=== PATIENT | female | born 1930 | race Caucasian/White ===

== ENCOUNTER 2019-05-13 11:03 | Inpatient (IN) | payer MEDICARE, OTHER ==
[2019-05-13] MEDS ORDERED: Nitroglycerin 2% Ointment 1 INCH/1 GM Packet ONE (11:18)
[2019-05-13] MEDS ORDERED: Aspirin Chewable 81 MG TAB ONE (11:18)
[2019-05-13 15:15] VITALS: BMI 35.2
[2019-05-13] MEDS ORDERED: Acetaminophen 325 MG TAB PO PRN (16:03)
[2019-05-13] MEDS ORDERED: Acetaminophen 650 MG Suppository PR PRN (16:03)
--- NOTE | 2019-05-13 16:53 | HP ---
TIME OF ASSESSMENT: 1500 hours. PRIMARY CARE PHYSICIAN: Dr. Steven Escalante. CHIEF COMPLAINT: Shortness of breath. HISTORY OF PRESENT ILLNESS: Ms. Campbell is a pleasant 89-year-old woman who presented to the emergency department in [place] with complaints of shortness of breath that got significantly worse yesterday evening. The patient reported associated chest tightness/heaviness. The patient states she has felt short of breath for the last several months and has actually been following with Dr. Reed regularly, who recommended a valve replacement. She is concerned that this is the cause of her difficulty breathing and is very adamant about being seen by him. The patient states she has otherwise felt generally well in recent days despite other gradually worsening shortness of breath. She denies having any fevers, chills, or sweats. Denies any cough or hemoptysis. In the emergency department at [place], she was given 20 mg of Lasix and states since then she has had some improvement in her breathing. She denies any underlying lung disease, history of COPD, or asthma. She does not wear any O2 at home. She is known to have a history of atrial fibrillation and is currently on Eliquis. REVIEW OF SYSTEMS: The patient reports having a good appetite. Denies any nausea or vomiting. No abdominal pain. No changes with her bowels or urinary symptoms. No headaches or dizziness. All other review of systems apart from those mentioned above in HPI are negative. ALLERGIES: NO KNOWN DRUG ALLERGIES. CURRENT MEDICATIONS: 1. Eliquis. 2. Amlodipine. 3. Pravastatin. 4. Triamterene/hydrochlorothiazide. PAST MEDICAL HISTORY: 1. Atrial fibrillation, on anticoagulation. 2. Hypertension. 3. Valve disorder. 4. Osteoarthritis. PAST SURGICAL HISTORY: Rectocele repair and perineoplasty in November 2016. SOCIAL HISTORY: The patient lives alone and is fully independent. Denies any tobacco use, alcohol consumption, or illicit drug use. PHYSICAL EXAMINATION: GENERAL: The patient appears well developed, well nourished, in no acute distress. She is resting comfortably in bed. VITAL SIGNS: Temperature 97.4, pulse 80, respirations 20, O2 saturation 97% on 2 L by nasal cannula, blood pressure 146/69. HEENT: Normocephalic and atraumatic. Pupils are equal, round, and reactive to light. Sclerae without icterus. Oropharynx is clear. NECK: Supple without lymphadenopathy. LUNGS: Notable for fine crackles at the right lung base. Otherwise clear. CARDIAC: Regular rate and rhythm. ABDOMEN: Soft, obese, nontender, nondistended. No guarding or rigidity. Normoactive bowel sounds present. No renal angle tenderness. EXTREMITIES: Trace lower extremity edema bilaterally. Peripheral pulses present. NEUROLOGIC: Alert and oriented x3. No neuro deficits. SKIN: Warm and dry. LABORATORY DATA: White count 9.8, hemoglobin 13, hematocrit 41.3, platelets 224, neutrophils 69.2%. Sodium 141, potassium 3.5, BUN 16, creatinine 0.82, GFR 66, glucose 111, calcium 9.2, total bilirubin 1.4, AST 17, ALT 16, alkaline phosphatase 89. Troponin negative. BNP 284.6. Total protein 7.8 and albumin 4.4. IMAGING DATA: Chest x-ray done at [facility] showed an enlarged heart with pulmonary vascular congestion and accompanying small effusions. There were atelectatic changes versus infiltrates in the lung bases. No pneumothoraces seen. IMPRESSION AND PLAN: Ms. Campbell is a very pleasant 89-year-old woman, who has been referred for management of the following. 1. Congestive heart failure exacerbation. The patient with an elevated BNP of 284.6. She was given 20 mg of Lasix at [facility] and has had symptomatic improvement. We will continue with Lasix 20 mg p.o. b.i.d. The patient concerned her shortness of breath is associated with the need for valve replacement. Cardiology consult has been placed as per patient's request. Echo also ordered; however, if an echo had been done within the last year, this will not have to be repeated unless instructed otherwise by Dr. Reed. Order was placed to obtain most recent cardiology records including echo. She had a negative troponin. We will continue to trend troponins. The patient given aspirin and Nitro-Bid in the emergency department due to reported "heaviness." EKG done in the ER showed atrial fibrillation with controlled ventricular response at a rate of 93. The patient is on Eliquis, which we will continue. We will continue the following. Consider CT imaging to better assess the possibility of infiltrates versus atelectatic changes. At present, no signs or symptoms of infection. Therefore, clinical suspicion for underlying pneumonia is low. 2. Hypertension. Monitor blood pressure and resume home medications. 3. Hyperlipidemia. Resume home medications once verified. 4. Gastrointestinal prophylaxis with famotidine. 5. Deep venous thrombosis prophylaxis. The patient is on anticoagulation. Mechanical sequential compression devices. PT/OT consult. 6. Code status full. Surrogate decision maker is her son, Shamir King. The patient's case was discussed with attending who agrees upon care as described above. Job ID: [id number]
[2019-05-13 18:06] LABS: Troponin I 0.022 ng/mL (< 0.028)
[2019-05-13] MEDS: Apixaban 5 MG TAB PO SCH (20:46)
[2019-05-13] MEDS: Famotidine 20 MG TAB PO SCH (20:46)
[2019-05-13] MEDS: Atorvastatin Calcium 10 MG TAB PO SCH (20:46)
[2019-05-13] MEDS ORDERED: Famotidine/PF 20 mg/2ml Vial SLOW IVP SCH (21:00)
[2019-05-14 05:13] LABS: #Basophils 0.1 thou/uL (0.0-0.2); #Eosinphils 0.2 thou/uL (0.0-0.7); #Lymphocytes 2.4 thou/uL (1.20-3.40); #Monocytes 0.7 thou/uL (0.11-0.59); #Neutrophils 5.7 thou/uL (1.40-6.50); %Basophils 0.6 % (0.0-1.0); %Eosinophils 2.6 % (0.0-10.0); %Lymphocytes 26.3 % (21.0-51.0); %Monocytes 7.6 % (0.0-10.0); %Neutrophils 62.9 % (42.0-75.0); Hemoglobin 12.3 g/dL (12.0-16.0); Mean Corpuscular Hemoglobin 29.3 pg (27.0-31.0); Mean Corpuscular Volume 88.9 fL (78.0-98.0); Mean Platelet Volume 8.7 fL (7.4-10.4); Platelet Count 215 thou/uL (130-400); RBC Distribution Width 14.2 % (11.5-14.5)
[2019-05-14 05:36] LABS: ALT (SGPT) 14 U/L (8-55); AST (SGOT) 21 U/L (5-34); Albumin 3.8 g/dL (3.4-4.8); Alkaline Phosphatase 87 U/L (40-110); Anion Gap 13 mmol/L (10-20); BUN (Urea Nitrogen) 18 mg/dL (9.8-20.1); Bilirubin, Total 1.1 mg/dL (0.2-1.2); Calc. Creatinine Clearance 57 mL/min (70-130); Calcium 8.5 mg/dL (7.8-10.44); Carbon Dioxide 27 mmol/L (23-31); Chloride 104 mmol/L (98-107); Estimated GFR-MDRD 57; Globulin 3.1 g/dL (2.4-3.5); Glucose 105 mg/dL (83-110); Potassium 3.5 mmol/L (3.5-5.1); Protein, Total 6.9 g/dL (6.0-8.3); Sodium 140 mmol/L (136-145)
[2019-05-14] MEDS: Cholecalciferol (Vitamin D3) 400 UNITS TAB PO SCH (08:56)
[2019-05-14] MEDS: Furosemide 20 MG TAB PO SCH ×2 (08:57→13:50)
[2019-05-14] MEDS: Amlodipine 10 MG TAB PO SCH (08:57)
[2019-05-14] MEDS: Famotidine 20 MG TAB PO SCH ×2 (08:57→21:28)
[2019-05-14] MEDS: Apixaban 5 MG TAB PO SCH (08:57)
[2019-05-14] MEDS: Icosapent Ethyl 1 GM CAPSULE PO SCH ×2 (08:58→18:09)
--- NOTE | 2019-05-14 10:48 | PDOC.HOSPP ---
- Subjective Encounter Date: 05/14/19 Encounter Time: 10:46 Subjective: 2 pillow orthopnea, marked VIRGEN - Objective Vital Signs & Weight: Vital Signs (12 hours) Temp Pulse Resp BP Pulse Ox 05/14/19 07:46 97.8 F 82 16 115/65 93 L 05/14/19 03:59 97.4 F L 79 18 158/67 H 95 Weight Weight 191 lb 12.8 oz I&O: 05/13/19 05/14/19 05/15/19 06:59 06:59 06:59 Intake Total 420 Output Total 1250 Balance -830 Result Diagrams: 05/14/19 04:19 05/14/19 04:19 Radiology Reviewed by me: Yes (cxr-chf) EKG Reviewed by me: Yes (atrial fib, no acute ST-T abnormality) Hospitalist ROS - Medication Medications: Active Medications Generic Name Dose Route Start Last Admin Trade Name Freq PRN Reason Stop Dose Admin Amlodipine Besylate 10 mg 05/14/19 09:00 05/14/19 08:57 Norvasc PO 10 mg DAILY BENITA Administration Atorvastatin Calcium 10 mg 05/13/19 21:00 05/13/19 20:46 Lipitor PO 10 mg HS BENITA Administration Cholecalciferol 600 units 05/14/19 09:00 05/14/19 08:56 Vitamin D PO 600 units DAILY BENITA Administration Famotidine 20 mg 05/13/19 21:00 05/14/19 08:57 Pepcid PO 20 mg Q12HR BENITA Administration Furosemide 20 mg 05/14/19 09:00 05/14/19 08:57 Lasix PO 20 mg 0900,1400 BENITA Administration Miscellaneous Medication 1 gm 05/14/19 08:00 05/14/19 08:58 Vascepa PO Not Given BID-WM BENITA Sodium Chloride 10 ml 05/13/19 16:03 05/13/19 20:50 Flush - Normal Saline IVF 10 ml Q12HR PRN Administration Saline Flush - Exam General Appearance: awake alert Neck: no JVD Heart: irregular, III/IV Heart - other findings: murmur crescendo/decrescendo Respiratory - other findings: rales lower 1/3 post chest Gastrointestinal: soft, normal bowel sounds Extremities: no edema Hosp A/P (1) Acute respiratory failure with hypoxia Code(s): J96.01 - ACUTE RESPIRATORY FAILURE WITH HYPOXIA Status: Acute (2) Aortic stenosis, severe Code(s): I35.0 - NONRHEUMATIC AORTIC (VALVE) STENOSIS Status: Acute (3) Acute CHF (congestive heart failure) Code(s): I50.9 - HEART FAILURE, UNSPECIFIED Status: Acute Qualifiers: Heart failure type: unspecified Qualified Code(s): I50.9 - Heart failure, unspecified (4) Atrial fibrillation with controlled ventricular response Code(s): I48.91 - UNSPECIFIED ATRIAL FIBRILLATION Status: Chronic (5) Anticoagulant long-term use Code(s): 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
[2019-05-14] MEDS ORDERED: Furosemide 40 MG/4 ML VIAL SLOW IVP SCH (16:30)
[2019-05-14] MEDS: Enoxaparin Sodium 80 MG/0.8 ML SYRINGE SC SCH (21:28)
[2019-05-14] MEDS: Atorvastatin Calcium 10 MG TAB PO SCH (21:28)
--- NOTE | 2019-05-14 23:46 | CON ---
DATE OF CONSULTATION: HISTORY OF PRESENT ILLNESS: The patient is an unfortunate 89-year-old woman, who presents with increasing dyspnea. The patient has a long history of atrial fibrillation. She also has a history of aortic stenosis. The patient was in her usual state of health when she developed increasing dyspnea. The patient denied having any chest discomfort. PAST MEDICAL HISTORY: 1. Atrial fibrillation. 2. Cerebrovascular accident. 3. Hypertension. 4. Dyslipidemia. 5. History of mild coronary artery disease. 6. Renal insufficiency. PAST SURGICAL HISTORY: Neck surgery, and carotid endarterectomy, hysterectomy. SOCIAL HISTORY: Nonsmoker. FAMILY HISTORY: Positive family history of heart disease. ALLERGIES: NO KNOWN DRUG ALLERGIES. PHYSICAL EXAMINATION: GENERAL: This is an obese woman, in no acute distress. VITAL SIGNS: Blood pressure 144/62. NECK: Showed no jugular venous distention. LUNGS: Have a few crackles in both bases. HEART: Irregular rate and rhythm. Normal S1, S2 with a 3/6 systolic murmur. ABDOMEN: Distended. EXTREMITIES: Showed trace edema. LABORATORY DATA: Sodium 140, potassium 3.5, chloride 104, bicarbonate 27, BUN 18, creatinine 0.92, glucose 105. White blood count 9.0, hemoglobin 12.3, hematocrit 37.3, and platelets 215. Her EKG revealed her to have atrial fibrillation with poor R-wave progression and premature ventricular contractions. IMPRESSION: 1. Congestive heart failure. 2. Severe aortic stenosis. 3. Permanent atrial fibrillation. 4. Hypertension. 5. History of cerebrovascular accident. 6. History of mild coronary artery disease. This patient presents with congestive heart failure. She has severe aortic stenosis. I would recommend the patient should be diuresed with Lasix. We will need to undergo a cardiac catheterization to evaluate if she has significant coronary artery disease. She will then be considered for a TAVR procedure. Job ID: [id number] MTDD
[2019-05-15] MEDS ORDERED: Furosemide 20 MG/2 ML VIAL SLOW IVP SCH (06:00)
[2019-05-15] MEDS: Icosapent Ethyl 1 GM CAPSULE PO SCH ×2 (08:04→17:55)
[2019-05-15] MEDS: Cholecalciferol (Vitamin D3) 400 UNITS TAB PO SCH (08:06)
[2019-05-15] MEDS: Enoxaparin Sodium 80 MG/0.8 ML SYRINGE SC SCH ×2 (08:06→20:59)
[2019-05-15] MEDS: Famotidine 20 MG TAB PO SCH ×2 (08:06→20:58)
[2019-05-15] MEDS: Amlodipine 10 MG TAB PO SCH (08:08)
--- NOTE | 2019-05-15 08:12 | PDOC.HOSPP ---
- Subjective Encounter Date: 05/15/19 Encounter Time: 08:11 Subjective: sob improved - Objective Vital Signs & Weight: Vital Signs (12 hours) Temp Pulse Resp BP BP Pulse Ox 05/15/19 08:08 82 141/64 H 05/15/19 04:00 97.7 F 86 18 136/60 96 Weight Weight 177 lb 14.4 oz I&O: 05/14/19 05/15/19 05/16/19 06:59 06:59 06:59 Intake Total 420 1062 Output Total 1250 2950 200 Balance -830 -1888 -200 Result Diagrams: 05/14/19 04:19 05/14/19 04:19 Hospitalist ROS - Medication Medications: Active Medications Generic Name Dose Route Start Last Admin Trade Name Freq PRN Reason Stop Dose Admin Amlodipine Besylate 10 mg 05/14/19 09:00 05/15/19 08:08 Norvasc PO 10 mg DAILY BENITA Administration Atorvastatin Calcium 10 mg 05/13/19 21:00 05/14/19 21:28 Lipitor PO 10 mg HS BENITA Administration Cholecalciferol 600 units 05/14/19 09:00 05/15/19 08:06 Vitamin D PO 600 units DAILY BENITA Administration Enoxaparin Sodium 80 mg 05/14/19 21:00 05/15/19 08:06 Lovenox SC 80 mg 0900,2100 BENITA Administration Famotidine 20 mg 05/13/19 21:00 05/15/19 08:06 Pepcid PO 20 mg Q12HR BENITA Administration Furosemide 20 mg 05/15/19 06:00 05/15/19 06:36 Lasix SLOW IVP 20 mg 0600,1400 BENITA Administration Miscellaneous Medication 1 gm 05/14/19 08:00 05/15/19 08:04 Vascepa PO Not Given BID-WM BENITA Sodium Chloride 10 ml 05/13/19 16:03 05/14/19 21:28 Flush - Normal Saline IVF 10 ml Q12HR PRN Administration Saline Flush Sodium Chloride 10 ml 05/13/19 16:03 05/15/19 06:37 Flush - Normal Saline IVF 10 ml PRN PRN Administration Saline Flush - Exam General Appearance: awake alert Neck: no JVD Heart: RRR, III/IV Heart - other findings: crescedo-decrescendo Respiratory - other findings: scant basilar rales, OW clear Gastrointestinal: soft, non-tender, normal bowel sounds Extremities: no edema Hosp A/P (1) Acute respiratory failure with hypoxia Code(s): J96.01 - ACUTE RESPIRATORY FAILURE WITH HYPOXIA Status: Acute (2) Aortic stenosis, severe Code(s): I35.0 - NONRHEUMATIC AORTIC (VALVE) STENOSIS Status: Acute (3) Acute CHF (congestive heart failure) Code(s): I50.9 - HEART FAILURE, UNSPECIFIED Status: Acute Qualifiers: Heart failure type: unspecified Qualified Code(s): I50.9 - Heart failure, unspecified (4) Atrial fibrillation with controlled ventricular response Code(s): I48.91 - UNSPECIFIED ATRIAL FIBRILLATION Status: Chronic (5) Anticoagulant long-term use Code(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
[2019-05-15] MEDS: Atorvastatin Calcium 10 MG TAB PO SCH (20:58)
[2019-05-16] MEDS ORDERED: Diabetic Tussin 200 MG/10 ML UDCUP PO PRN (07:39)
[2019-05-16] MEDS ORDERED: hydrALAZINE 20 MG/ML VIAL SLOW IVP PRN (07:39)
[2019-05-16] MEDS ORDERED: Ondansetron PF 4 MG/2 ML Vial IVP PRN (07:39)
[2019-05-16] MEDS ORDERED: Cepastat Lozenges 1 LOZ PO PRN (07:39)
[2019-05-16] MEDS ORDERED: Loperamide HCl 2 MG CAP PO PRN (07:39)
[2019-05-16] MEDS ORDERED: Sodium Chloride 0.65% Nasal 44 ML BOT EA NARE PRN (07:39)
[2019-05-16] MEDS ORDERED: Calcium Carbonate 500 MG ChewTAB PO PRN (07:39)
[2019-05-16] MEDS ORDERED: Bisacodyl 5 MG TAB PO PRN (07:39)
[2019-05-16] MEDS ORDERED: Loratadine 10 MG TAB PO PRN (07:39)
[2019-05-16] MEDS ORDERED: Ondansetron ODT 4 MG TAB PO PRN (07:39)
[2019-05-16] MEDS ORDERED: Senokot S 8.6-50 MG TAB PO PRN (07:39)
[2019-05-16] MEDS ORDERED: Artificial Tears 18 DROP/0.9 ML EA EYE PRN (07:39)
[2019-05-16] MEDS: Enoxaparin Sodium 80 MG/0.8 ML SYRINGE SC SCH ×2 (08:20→20:49)
[2019-05-16] MEDS: Famotidine 20 MG TAB PO SCH ×2 (08:21→20:48)
[2019-05-16] MEDS: Furosemide 20 MG TAB PO SCH (08:21)
[2019-05-16] MEDS: Amlodipine 10 MG TAB PO SCH (08:21)
[2019-05-16] MEDS: Icosapent Ethyl 1 GM CAPSULE PO SCH ×2 (08:21→16:12)
[2019-05-16] MEDS: Cholecalciferol (Vitamin D3) 400 UNITS TAB PO SCH (08:21)
--- NOTE | 2019-05-16 11:40 | PDOC.HOSPP ---
- Subjective Encounter Date: 05/16/19 Encounter Time: 07:45 Subjective: Patient seen and examined. No new complaints. No overnight events - Objective Vital Signs & Weight: Vital Signs (12 hours) Temp Pulse Resp BP Pulse Ox 05/16/19 11:15 97.6 F 81 18 117/58 L 93 L 05/16/19 07:40 98.1 F 72 16 122/55 L 95 05/16/19 04:00 98.4 F 80 18 102/54 L 96 05/16/19 00:09 96 Weight Weight 184 lb 9.6 oz I&O: 05/15/19 05/16/19 05/17/19 06:59 06:59 06:59 Intake Total 1062 910 Output Total 2950 1250 Balance -9446 -110 Result Diagrams: 05/14/19 04:19 05/14/19 04:19 Radiology Reviewed by me: Yes EKG Reviewed by me: Yes Hospitalist ROS - Review of Systems ENT: denies: ear pain, ear discharge, nose pain, nose discharge, nose congestion , mouth pain, mouth swelling, throat pain, throat swelling, other Respiratory: denies: cough, dry, shortness of breath, hemoptysis, SOB with excertion, pleuritic pain, sputum, wheezing, other Cardiovascular: denies: chest pain, palpitations, orthopnea, paroxysmal noc. dyspnea, edema, light headedness, other Gastrointestinal: denies: nausea, vomiting, abdominal pain, diarrhea, constipation, melena, hematochezia, other Genitourinary: denies: dysuria, frequency, incontinence, hematuria, retention, other Musculoskeletal: denies: neck pain, shoulder pain, arm pain, back pain, hand pain, leg pain, foot pain, other - Medication Medications: Active Medications Generic Name Dose Route Start Last Admin Trade Name Freq PRN Reason Stop Dose Admin Amlodipine Besylate 10 mg 05/14/19 09:00 05/16/19 08:21 Norvasc PO 10 mg DAILY BENITA Administration Atorvastatin Calcium 10 mg 05/13/19 21:00 05/15/19 20:58 Lipitor PO 10 mg HS BENITA Administration Cholecalciferol 600 units 05/14/19 09:00 05/16/19 08:21 Vitamin D PO 600 units DAILY BENITA Administration Enoxaparin Sodium 80 mg 05/14/19 21:00 05/16/19 08:20 Lovenox SC 05/18/19 21:30 80 mg 0900,2100 BENITA Administration Famotidine 20 mg 05/13/19 21:00 05/16/19 08:21 Pepcid PO 20 mg Q12HR BENITA Administration Furosemide 20 mg 05/16/19 09:00 05/16/19 08:21 Lasix PO 20 mg DAILY BENITA Administration Miscellaneous Medication 1 gm 05/14/19 08:00 05/16/19 08:21 Vascepa PO 1 gm BID-WM BENITA Administration Sodium Chloride 10 ml 05/13/19 16:03 05/15/19 21:00 Flush - Normal Saline IVF 10 ml Q12HR PRN Administration Saline Flush Sodium Chloride 10 ml 05/13/19 16:03 05/15/19 06:37 Flush - Normal Saline IVF 10 ml PRN PRN Administration Saline Flush - Exam General Appearance: NAD, awake alert Eye: PERRL, anicteric sclera ENT: normocephalic atraumatic, no oropharyngeal lesions Neck: supple, symmetric, no JVD Heart: RRR, no gallops, murmur present Respiratory: CTAB Respiratory - other findings: rales at base Gastrointestinal: soft, non-tender, non-distended Extremities: no cyanosis, no clubbing, no edema Skin: normal turgor, no lesions Neurological: no focal deficits Musculoskeletal: normal tone, normal strength Psychiatric: normal affect, normal behavior Hosp A/P (1) Acute CHF (congestive heart failure) Code(s): I50.9 - HEART FAILURE, UNSPECIFIED Status: Acute Qualifiers: Heart failure type: diastolic Qualified Code(s): I50.31 - Acute diastolic ( congestive) heart failure (2) Acute respiratory failure with hypoxia Code(s): J96.01 - ACUTE RESPIRATORY FAILURE WITH HYPOXIA Status: Resolved (3) Aortic stenosis, severe Code(s): I35.0 - NONRHEUMATIC AORTIC (VALVE) STENOSIS Status: Chronic (4) Anticoagulant long-term use Code(s): Z79.01 - USP (CURRENT) USE OF ANTICOAGULANTS Status: Chronic (5) Atrial fibrillation with controlled ventricular response Code(s): I48.91 - UNSPECIFIED ATRIAL FIBRILLATION Status: Chronic (6) Dyslipidemia Code(s): E78.5 - HYPERLIPIDEMIA, UNSPECIFIED Status: Chronic (7) Obesity (BMI 30.0-34.9) Code(s): E66.9 - OBESITY, UNSPECIFIED Status: Chronic (8) HTN (hypertension) Code(s): I10 - ESSENTIAL (PRIMARY) HYPERTENSION Status: Chronic - Plan old records reviewed/req 05/16/19- medication reviewed and continue to provide supportive care, continue lasix, repeat labs tomorrow, cardiac cath on sunday, on lovenox, hold elliquis for now
[2019-05-16] MEDS: Atorvastatin Calcium 10 MG TAB PO SCH (20:49)
[2019-05-17 04:55] LABS: #Basophils 0.1 thou/uL (0.0-0.2); #Eosinphils 0.2 thou/uL (0.0-0.7); #Lymphocytes 2.6 thou/uL (1.20-3.40); #Monocytes 0.6 thou/uL (0.11-0.59); #Neutrophils 4.4 thou/uL (1.40-6.50); %Basophils 1.1 % (0.0-1.0); %Lymphocytes 33.2 % (21.0-51.0); %Neutrophils 54.7 % (42.0-75.0); Hemoglobin 12.4 g/dL (12.0-16.0); Mean Corpuscular Volume 88.3 fL (78.0-98.0); Mean Platelet Volume 8.3 fL (7.4-10.4); Platelet Count 204 thou/uL (130-400); RBC Distribution Width 14.1 % (11.5-14.5); Red Blood Cell (RBC) Count 4.12 mill/uL (4.20-5.40)
[2019-05-17 05:24] LABS: Anion Gap 12 mmol/L (10-20); BUN (Urea Nitrogen) 21 mg/dL (9.8-20.1); Calc. Creatinine Clearance 57 mL/min (70-130); Calcium 8.4 mg/dL (7.8-10.44); Carbon Dioxide 27 mmol/L (23-31); Chloride 104 mmol/L (98-107); Estimated GFR-MDRD 61; Glucose 103 mg/dL (83-110); Magnesium 2.2 mg/dL (1.6-2.6); Potassium 3.2 mmol/L (3.5-5.1); Sodium 140 mmol/L (136-145)
[2019-05-17] MEDS ORDERED: Potassium Chloride 20 MEQ TAB PO SCH (07:30)
[2019-05-17] MEDS: Cholecalciferol (Vitamin D3) 400 UNITS TAB PO SCH (08:48)
[2019-05-17] MEDS: Amlodipine 10 MG TAB PO SCH (08:49)
[2019-05-17] MEDS: Enoxaparin Sodium 80 MG/0.8 ML SYRINGE SC SCH ×2 (08:49→20:16)
[2019-05-17] MEDS: Famotidine 20 MG TAB PO SCH ×2 (08:49→20:16)
[2019-05-17] MEDS: Icosapent Ethyl 1 GM CAPSULE PO SCH ×2 (08:49→17:55)
[2019-05-17] MEDS: Furosemide 20 MG TAB PO SCH (08:49)
--- NOTE | 2019-05-17 11:03 | PDOC.HOSPP ---
- Subjective Encounter Date: 05/17/19 Encounter Time: 07:40 Subjective: Patient seen and examined. No new complaints. No overnight events - Objective Vital Signs & Weight: Vital Signs (12 hours) Temp Pulse Resp BP BP Pulse Ox 05/17/19 08:49 85 130/58 L 05/17/19 08:35 98.3 F 85 18 130/58 L 92 L 05/17/19 04:16 97.9 F 81 12 117/55 L 95 Weight Weight 184 lb 9.6 oz I&O: 05/16/19 05/17/19 05/18/19 06:59 06:59 06:59 Intake Total 910 1040 Output Total 1250 1650 Balance -340 -610 Result Diagrams: 05/17/19 04:41 05/17/19 04:41 EKG Reviewed by me: Yes Hospitalist ROS - Review of Systems Respiratory: denies: cough, dry, shortness of breath, hemoptysis, SOB with excertion, pleuritic pain, sputum, wheezing, other Cardiovascular: denies: chest pain, palpitations, orthopnea, paroxysmal noc. dyspnea, edema, light headedness, other Gastrointestinal: denies: nausea, vomiting, abdominal pain, diarrhea, constipation, melena, hematochezia, other Genitourinary: denies: dysuria, frequency, incontinence, hematuria, retention, other Musculoskeletal: denies: neck pain, shoulder pain, arm pain, back pain, hand pain, leg pain, foot pain, other - Medication Medications: Active Medications Generic Name Dose Route Start Last Admin Trade Name Freq PRN Reason Stop Dose Admin Amlodipine Besylate 10 mg 05/14/19 09:00 05/17/19 08:49 Norvasc PO 10 mg DAILY BENITA Administration Atorvastatin Calcium 10 mg 05/13/19 21:00 05/16/19 20:49 Lipitor PO 10 mg HS BENITA Administration Cholecalciferol 600 units 05/14/19 09:00 05/17/19 08:48 Vitamin D PO 600 units DAILY BENITA Administration Enoxaparin Sodium 80 mg 05/14/19 21:00 05/17/19 08:49 Lovenox SC 05/18/19 21:30 80 mg 0900,2100 BENITA Administration Famotidine 20 mg 05/13/19 21:00 05/17/19 08:49 Pepcid PO 20 mg Q12HR BENITA Administration Furosemide 20 mg 05/16/19 09:00 05/17/19 08:49 Lasix PO 20 mg DAILY BENITA Administration Miscellaneous Medication 1 gm 05/14/19 08:00 05/17/19 08:49 Vascepa PO 1 gm BID-WM BENITA Administration Sodium Chloride 10 ml 05/13/19 16:03 05/15/19 21:00 Flush - Normal Saline IVF 10 ml Q12HR PRN Administration Saline Flush Sodium Chloride 10 ml 05/13/19 16:03 05/15/19 06:37 Flush - Normal Saline IVF 10 ml PRN PRN Administration Saline Flush - Exam General Appearance: NAD, awake alert Eye: PERRL, anicteric sclera ENT: normocephalic atraumatic, no oropharyngeal lesions Neck: supple, symmetric, no JVD Heart: RRR, no gallops, no rubs, murmur present Respiratory: CTAB, no wheezes, no rales Gastrointestinal: soft, non-tender, non-distended Extremities: no cyanosis, no clubbing Skin: normal turgor, no lesions Neurological: no focal deficits Hosp A/P (1) Acute CHF (congestive heart failure) Code(s): I50.9 - HEART FAILURE, UNSPECIFIED Status: Acute Qualifiers: Heart failure type: diastolic Qualified Code(s): I50.31 - Acute diastolic ( congestive) heart failure (2) Acute respiratory failure with hypoxia Code(s): J96.01 - ACUTE RESPIRATORY FAILURE WITH HYPOXIA Status: Resolved (3) Aortic stenosis, severe Code(s): I35.0 - NONRHEUMATIC AORTIC (VALVE) STENOSIS Status: Chronic (4) Anticoagulant long-term use Code(s): Z79.01 - SENIOR CARE (CURRENT) USE OF ANTICOAGULANTS Status: Chronic (5) Atrial fibrillation with controlled ventricular response Code(s): I48.91 - UNSPECIFIED ATRIAL FIBRILLATION Status: Chronic (6) Dyslipidemia Code(s): E78.5 - HYPERLIPIDEMIA, UNSPECIFIED Status: Chronic (7) Obesity (BMI 30.0-34.9) Code(s): E66.9 - OBESITY, UNSPECIFIED Status: Chronic (8) HTN (hypertension) Code(s): I10 - ESSENTIAL (PRIMARY) HYPERTENSION Status: Chronic (9) Hypokalemia Code(s): E87.6 - HYPOKALEMIA Status: Acute - Plan old records reviewed/req 05/16/19- medication reviewed and continue to provide supportive care, continue lasix, repeat labs tomorrow, cardiac cath on sunday, on lovenox, hold elliquis for now 05/17/19-medication reviewed as above, symptomatic treatment, replace potassium , cardiac cath on sunday, stable
[2019-05-17] MEDS: Atorvastatin Calcium 10 MG TAB PO SCH (20:16)
[2019-05-18 04:59] LABS: Anion Gap 12 mmol/L (10-20); BUN (Urea Nitrogen) 24 mg/dL (9.8-20.1); Calc. Creatinine Clearance 63 mL/min (70-130); Calcium 8.5 mg/dL (7.8-10.44); Carbon Dioxide 26 mmol/L (23-31); Chloride 106 mmol/L (98-107); Estimated GFR-MDRD 68; Glucose 104 mg/dL (83-110); Potassium 3.4 mmol/L (3.5-5.1); Sodium 141 mmol/L (136-145)
[2019-05-18] MEDS ORDERED: Potassium Chloride 20 MEQ TAB PO SCH (07:45)
[2019-05-18] MEDS: Cholecalciferol (Vitamin D3) 400 UNITS TAB PO SCH (08:53)
[2019-05-18] MEDS: Famotidine 20 MG TAB PO SCH ×2 (08:53→20:04)
[2019-05-18] MEDS: Amlodipine 10 MG TAB PO SCH (08:55)
[2019-05-18] MEDS: Furosemide 20 MG TAB PO SCH (08:55)
[2019-05-18] MEDS: Icosapent Ethyl 1 GM CAPSULE PO SCH ×2 (08:56→16:09)
[2019-05-18] MEDS: Enoxaparin Sodium 80 MG/0.8 ML SYRINGE SC SCH ×2 (08:57→20:05)
--- NOTE | 2019-05-18 10:21 | PDOC.HOSPP ---
- Subjective Encounter Date: 05/18/19 Encounter Time: 07:50 Subjective: Patient seen and examined. No new complaints. No overnight events - Objective Vital Signs & Weight: Vital Signs (12 hours) Temp Pulse Resp BP Pulse Ox 05/18/19 08:50 97.5 F L 83 13 152/67 H 94 L 05/18/19 04:35 98.2 F 70 16 129/73 96 Weight Weight 182 lb 3.2 oz I&O: 05/17/19 05/18/19 05/19/19 06:59 06:59 06:59 Intake Total 1040 840 Output Total 1650 600 Balance -610 240 Result Diagrams: 05/17/19 04:41 05/18/19 04:12 EKG Reviewed by me: Yes Hospitalist ROS - Review of Systems Respiratory: denies: cough, dry, shortness of breath, hemoptysis, SOB with excertion, pleuritic pain, sputum, wheezing, other Cardiovascular: denies: chest pain, palpitations, orthopnea, paroxysmal noc. dyspnea, edema, light headedness, other Gastrointestinal: denies: nausea, vomiting, abdominal pain, diarrhea, constipation, melena, hematochezia, other Genitourinary: denies: dysuria, frequency, incontinence, hematuria, retention, other Musculoskeletal: denies: neck pain, shoulder pain, arm pain, back pain, hand pain, leg pain, foot pain, other - Medication Medications: Active Medications Generic Name Dose Route Start Last Admin Trade Name Freq PRN Reason Stop Dose Admin Amlodipine Besylate 10 mg 05/14/19 09:00 05/18/19 08:55 Norvasc PO 10 mg DAILY BENITA Administration Atorvastatin Calcium 10 mg 05/13/19 21:00 05/17/19 20:16 Lipitor PO 10 mg HS BENITA Administration Cholecalciferol 600 units 05/14/19 09:00 05/18/19 08:53 Vitamin D PO 600 units DAILY BENITA Administration Enoxaparin Sodium 80 mg 05/14/19 21:00 05/18/19 08:57 Lovenox SC 05/18/19 21:30 80 mg 0900,2100 BENITA Administration Famotidine 20 mg 05/13/19 21:00 05/18/19 08:53 Pepcid PO 20 mg Q12HR BENITA Administration Furosemide 20 mg 05/16/19 09:00 05/18/19 08:55 Lasix PO 20 mg DAILY BENITA Administration Miscellaneous Medication 1 gm 05/14/19 08:00 05/18/19 08:56 Vascepa PO 1 gm BID-WM BENITA Administration Sodium Chloride 10 ml 05/13/19 16:03 05/15/19 21:00 Flush - Normal Saline IVF 10 ml Q12HR PRN Administration Saline Flush Sodium Chloride 10 ml 05/13/19 16:03 05/15/19 06:37 Flush - Normal Saline IVF 10 ml PRN PRN Administration Saline Flush - Exam General Appearance: NAD, awake alert Eye: PERRL, anicteric sclera ENT: normocephalic atraumatic, no oropharyngeal lesions Neck: supple, symmetric, no JVD Heart: RRR, no gallops, no rubs, murmur present Respiratory: CTAB, no wheezes, no rales Gastrointestinal: soft, non-tender, non-distended, normal bowel sounds Extremities: no cyanosis, no clubbing Skin: normal turgor, no lesions Neurological: no focal deficits Musculoskeletal: normal tone, normal strength Psychiatric: normal affect, normal behavior Hosp A/P (1) Acute CHF (congestive heart failure) Code(s): I50.9 - HEART FAILURE, UNSPECIFIED Status: Acute Qualifiers: Heart failure type: diastolic Qualified Code(s): I50.31 - Acute diastolic ( congestive) heart failure (2) Acute respiratory failure with hypoxia Code(s): J96.01 - ACUTE RESPIRATORY FAILURE WITH HYPOXIA Status: Resolved (3) Aortic stenosis, severe Code(s): I35.0 - NONRHEUMATIC AORTIC (VALVE) STENOSIS Status: Chronic (4) Anticoagulant long-term use Code(s): Z79.01 - FROG SHAKER (CURRENT) USE OF ANTICOAGULANTS Status: Chronic (5) Atrial fibrillation with controlled ventricular response Code(s): I48.91 - UNSPECIFIED ATRIAL FIBRILLATION Status: Chronic (6) Dyslipidemia Code(s): E78.5 - HYPERLIPIDEMIA, UNSPECIFIED Status: Chronic (7) Obesity (BMI 30.0-34.9) Code(s): E66.9 - OBESITY, UNSPECIFIED Status: Chronic (8) HTN (hypertension) Code(s): I10 - ESSENTIAL (PRIMARY) HYPERTENSION Status: Chronic (9) Hypokalemia Code(s): E87.6 - HYPOKALEMIA Status: Acute - Plan old records reviewed/req 05/16/19- medication reviewed and continue to provide supportive care, continue lasix, repeat labs tomorrow, cardiac cath on sunday, on lovenox, hold elliquis for now 05/17/19-medication reviewed as above, symptomatic treatment, replace potassium , cardiac cath on sunday, stable 05/18/19 replace potassium, hold lovenox tomorrow, npo after midnight, tomorrow cardiac cath, medication reviewed and continue to provide symptomatic treatment
[2019-05-18] MEDS: Atorvastatin Calcium 10 MG TAB PO SCH (20:04)
[2019-05-19] MEDS ORDERED: Heparin (Artline) 1,000 ML ONE (06:39)
[2019-05-19] MEDS: Cholecalciferol (Vitamin D3) 400 UNITS TAB PO SCH (07:03)
[2019-05-19] MEDS: Amlodipine 10 MG TAB PO SCH (07:04)
[2019-05-19] MEDS: Famotidine 20 MG TAB PO SCH (07:04)
[2019-05-19] MEDS ORDERED: Midazolam HCl 2 mg/2 ml Vial ONE (08:24)
[2019-05-19] MEDS ORDERED: Nitroglycerin 0.4 MG TAB (25 Tab Bottle) SL PRN (08:50)
[2019-05-19] MEDS ORDERED: Acetaminophen/Codeine 30-300mg Tablet PO PRN ×2 (08:50)
[2019-05-19] MEDS ORDERED: Sodium Chloride 0.9% 200 ML IV PRN (08:50)
[2019-05-19] MEDS ORDERED: Communication Order-Pharmacy FS SCH (11:00)
--- NOTE | 2019-05-19 11:31 | PDOC.HOSPP ---
- Subjective Encounter Date: 05/19/19 Encounter Time: 07:40 Subjective: Patient seen and examined. No new complaints. No overnight events - Objective Vital Signs & Weight: Vital Signs (12 hours) Temp Pulse Resp BP Pulse Ox 05/19/19 06:59 98.1 F 79 21 H 133/58 L 92 L 05/19/19 04:53 97.7 F 78 16 131/61 90 L Weight Weight 183 lb 4.8 oz I&O: 05/18/19 05/19/19 05/20/19 06:59 06:59 06:59 Intake Total 840 760 Output Total 600 Balance 240 760 Result Diagrams: 05/17/19 04:41 05/18/19 04:12 EKG Reviewed by me: Yes Hospitalist ROS - Review of Systems ENT: denies: ear pain, ear discharge, nose pain, nose discharge, nose congestion , mouth pain, mouth swelling, throat pain, throat swelling, other Respiratory: denies: cough, dry, shortness of breath, hemoptysis, SOB with excertion, pleuritic pain, sputum, wheezing, other Cardiovascular: denies: chest pain, palpitations, orthopnea, paroxysmal noc. dyspnea, edema, light headedness, other Gastrointestinal: denies: nausea, vomiting, abdominal pain, diarrhea, constipation, melena, hematochezia, other Genitourinary: denies: dysuria, frequency, incontinence, hematuria, retention, other Musculoskeletal: denies: neck pain, shoulder pain, arm pain, back pain, hand pain, leg pain, foot pain, other - Medication Medications: Active Medications Generic Name Dose Route Start Last Admin Trade Name Mena PRN Reason Stop Dose Admin Amlodipine Besylate 10 mg 05/14/19 09:00 05/19/19 07:04 Norvasc PO 10 mg DAILY BENITA Administration Atorvastatin Calcium 10 mg 05/13/19 21:00 05/18/19 20:04 Lipitor PO 10 mg HS BENITA Administration Cholecalciferol 600 units 05/14/19 09:00 05/19/19 07:03 Vitamin D PO 600 units DAILY BENITA Administration Famotidine 20 mg 05/13/19 21:00 05/19/19 07:04 Pepcid PO 20 mg Q12HR BENITA Administration Furosemide 20 mg 05/16/19 09:00 05/18/19 08:55 Lasix PO 20 mg DAILY BENITA Administration Miscellaneous Medication 1 gm 05/14/19 08:00 05/18/19 16:09 Vascepa PO 1 gm BID-WM BENITA Administration Sodium Chloride 10 ml 05/13/19 16:03 05/15/19 21:00 Flush - Normal Saline IVF 10 ml Q12HR PRN Administration Saline Flush Sodium Chloride 10 ml 05/13/19 16:03 05/15/19 06:37 Flush - Normal Saline IVF 10 ml PRN PRN Administration Saline Flush - Exam General Appearance: NAD, awake alert Eye: PERRL, anicteric sclera ENT: normocephalic atraumatic, no oropharyngeal lesions Neck: supple, symmetric, no JVD, no thyromegaly Heart: RRR, no murmur, no gallops, no rubs Respiratory: CTAB, no wheezes, no rales, no ronchi Gastrointestinal: soft, non-tender, non-distended, normal bowel sounds Extremities: no cyanosis, no clubbing Skin: normal turgor, no lesions Neurological: no focal deficits Musculoskeletal: normal tone, normal strength Psychiatric: normal affect, normal behavior Hosp A/P (1) Acute CHF (congestive heart failure) Code(s): I50.9 - HEART FAILURE, UNSPECIFIED Status: Acute Qualifiers: Heart failure type: diastolic Qualified Code(s): I50.31 - Acute diastolic ( congestive) heart failure (2) Acute respiratory failure with hypoxia Code(s): J96.01 - ACUTE RESPIRATORY FAILURE WITH HYPOXIA Status: Resolved (3) Aortic stenosis, severe Code(s): I35.0 - NONRHEUMATIC AORTIC (VALVE) STENOSIS Status: Chronic (4) Anticoagulant long-term use Code(s): Z79.01 - 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 (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) USE OF ANTICOAGULANTS Status: Chronic (5) Atrial fibrillation with controlled ventricular response Code(s): I48.91 - UNSPECIFIED ATRIAL FIBRILLATION Status: Chronic (6) Dyslipidemia Code(s): E78.5 - HYPERLIPIDEMIA, UNSPECIFIED Status: Chronic (7) Obesity (BMI 30.0-34.9) Code(s): E66.9 - OBESITY, UNSPECIFIED Status: Chronic (8) HTN (hypertension) Code(s): I10 - ESSENTIAL (PRIMARY) HYPERTENSION Status: Chronic (9) Hypokalemia Code(s): E87.6 - HYPOKALEMIA Status: Acute - Plan old records reviewed/req, plan discussed w/ family 05/16/19- medication reviewed and continue to provide supportive care, continue lasix, repeat labs tomorrow, cardiac cath on sunday, on lovenox, hold elliquis for now 05/17/19-medication reviewed as above, symptomatic treatment, replace potassium , cardiac cath on sunday, stable 05/18/19 replace potassium, hold lovenox tomorrow, npo after midnight, tomorrow cardiac cath, medication reviewed and continue to provide symptomatic treatment 05/19/19- cardiac cath negative, TAVR after discharge, DC home today
[2019-05-19] MEDS: Furosemide 20 MG TAB PO SCH (11:32)
[2019-05-19] MEDS: Icosapent Ethyl 1 GM CAPSULE PO SCH (11:32)
[2019-05-19 15:05] VITALS: BP 126/62; TEMP 97.6
== END 2019-05-19 16:06 | disposition home or self-care (01) | DRG 286 ==
LOC: ERS 11:03 → ERHOLD 12:06 → 2SW 14:49 → OBSVTOIN 05-14 10:53 → 2NO 05-17 08:21
PROVIDERS: ADMIT Internal Medicine; ATTEND Internal Medicine
PROC: B2111ZZ Fluoroscopy of Multiple Coronary Arteries using Low Osmolar Contrast (ICD-10-PCS; principal; 2019-05-14)
DX: I11.0 Hypertensive heart disease with heart failure (principal); J96.01 Acute respiratory failure with hypoxia; I50.31 Acute diastolic (congestive) heart failure; I48.21 Permanent atrial fibrillation; E78.5 Hyperlipidemia, unspecified; I35.0 Nonrheumatic aortic (valve) stenosis; E78.00 Pure hypercholesterolemia, unspecified; I25.10 Atherosclerotic heart disease of native coronary artery without angina pectoris; E66.9 Obesity, unspecified; E87.6 Hypokalemia; M19.90 Unspecified osteoarthritis, unspecified site; Z90.710 Acquired absence of both cervix and uterus; Z79.01 Long term (current) use of anticoagulants; Z86.73 Personal history of transient ischemic attack (TIA), and cerebral infarction without residual deficits; Z68.33 Body mass index [BMI] 33.0-33.9, adult
CPT/HCPCS: 36415; 80048; 80053; 83735; 85025; 93005; 93454; 93798; 99152; C1769; J1644; J1650; J1940; J2250

== ENCOUNTER 2019-06-20 14:25 | Emergency (ER) | payer MEDICARE, OTHER ==
--- NOTE | 2019-06-20 15:39 | CT ---
EXAM: CT brain without contrast HISTORY: Fall with head trauma COMPARISON: 10/05/2009 TECHNIQUE: Multiple contiguous axial images were obtained and a CT of the brain without contrast. FINDINGS: There are subtle scattered hypodensities in the subcortical and periventricular white matte r consistent with small vessel ischemic disease. There is no evidence of hydrocephalus, intracranial hemorrhage, or extra-axial fluid collection. The calvarium and overlying soft tissues are unremarkable. The visualized paranasal sinuses and masto id air cells are well aerated. IMPRESSION: No evidence of acute intracranial abnormality
--- NOTE | 2019-06-20 15:48 | CT ---
CT CERVICAL SPINE WITHOUT CONTRAST: 06/20/19 HISTORY: Fall. Pain. COMPARISON: CT cervical spine 10/05/09. FINDINGS: The occipital condyles are intact. The odontoid process is intact. Mastoids are clear. No evidence of fracture or malalignment of the cervical spine. Moderate basilar calcifications of the carotid bulbs. Surgical clips are on both proximal internal carotid arteries. Multilevel uncinate process hypertrophy causes mild neural foraminal narrowing. The spinous processes are intact. Subtle opacity within the left upper lobe. Concern for a spiculated nodule in the left upper lobe on coronal image 23, although was seen in 2010 and is relatively similar. IMPRESSION: No acute fracture or malalignment of the cervical spine. POS: OFF
--- NOTE | 2019-06-20 15:53 | RAD ---
RIGHT KNEE 4 VIEWS: HISTORY: Joint pain. COMPARISON: None. FINDINGS: Moderate vascular calcifications. No acute fracture. Mild prepatellar soft tissue swelling. IMPRESSION: Prepatellar soft tissue swelling, maybe sequelae of bursitis or contusion given history of injury. N o acute fracture. POS: OFF
== END 2019-06-20 16:37 | disposition home or self-care (01) ==
LOC: ERS 14:25
DX: S80.01XA Contusion of right knee, initial encounter (principal); I49.9 Cardiac arrhythmia, unspecified; I48.91 Unspecified atrial fibrillation; I10 Essential (primary) hypertension; Z79.01 Long term (current) use of anticoagulants; Z79.899 Other long term (current) drug therapy; W18.09XA Striking against other object with subsequent fall, initial encounter
CPT/HCPCS: 70450; 72125

== ENCOUNTER 2019-08-13 18:00 | Observation (INO) | payer MEDICARE, OTHER ==
[2019-08-13 18:30] LABS: #Basophils 0.1 thou/uL (0.0-0.2); #Eosinphils 0.4 thou/uL (0.0-0.7); #Lymphocytes 4.1 thou/uL (1.20-3.40); #Monocytes 0.7 thou/uL (0.11-0.59); #Neutrophils 4.5 thou/uL (1.40-6.50); %Eosinophils 3.9 % (0.0-10.0); %Lymphocytes 42.2 % (21.0-51.0); %Monocytes 6.8 % (0.0-10.0); %Neutrophils 46.1 % (42.0-75.0); Hemoglobin 13.7 g/dL (12.0-16.0); Mean Corpuscular HGB CONC 33.5 g/dL (32.0-36.0); Mean Corpuscular Hemoglobin 29.1 pg (27.0-31.0); Mean Corpuscular Volume 87.1 fL (78.0-98.0); Mean Platelet Volume 8.5 fL (7.4-10.4); Platelet Count 287 thou/uL (130-400); RBC Distribution Width 14.7 % (11.5-14.5); Red Blood Cell (RBC) Count 4.69 mill/uL (4.20-5.40); White Blood Cell (WBC) Count 9.8 thou/uL (4.8-10.8)
--- NOTE | 2019-08-13 18:44 | RAD ---
PORTABLE CHEST: 08/13/19 INDICATIONS: Tachycardia. COMPARISON: 05/13/19. Cardiomegaly again noted. Mild vascular engorgement. No focal infiltrate or significant effusion. Dual lead pacemaker device has been placed since the prior exam. However, the atrial lead appears positioned in the superior vena cava. The right ventricular lead ove rlies the midline. Recommend cardiology consultation regarding the position of the cardiac leads. IMPRESSION: 1. Cardiomegaly with mild vascular engorgement. 2. Dual lead pacemaker device. Leads appear inadequately positioned on this exam. Recommend card iology consultation. Relayed to ER nurse Xiomara by phone. POS: GONZALO
[2019-08-13 18:51] LABS: ALT (SGPT) 11 U/L (8-55); AST (SGOT) 16 U/L (5-34); Albumin 4.4 g/dL (3.4-4.8); Alkaline Phosphatase 142 U/L (40-110); Anion Gap 16 mmol/L (10-20); BUN (Urea Nitrogen) 23 mg/dL (9.8-20.1); Bilirubin, Total 0.5 mg/dL (0.2-1.2); Calc. Creatinine Clearance 0 mL/min (70-130); Calcium 9.5 mg/dL (7.8-10.44); Carbon Dioxide 25 mmol/L (23-31); Chloride 103 mmol/L (98-107); Estimated GFR-MDRD 42; Globulin 3.7 g/dL (2.4-3.5); Glucose 89 mg/dL (83-110); Potassium 3.5 mmol/L (3.5-5.1); Protein, Total 8.1 g/dL (6.0-8.3); Sodium 140 mmol/L (136-145)
[2019-08-13] MEDS ORDERED: Aspirin Chewable 81 MG TAB ONE (20:18)
[2019-08-13] MEDS ORDERED: Acetaminophen 650 MG Suppository PR PRN (22:01)
[2019-08-13] MEDS ORDERED: Acetaminophen 325 MG TAB PO PRN (22:01)
[2019-08-13 22:37] LABS: Troponin I Less than 0.010 ng/mL (< 0.028)
--- NOTE | 2019-08-13 22:49 | HP ---
TIME OF ASSESSMENT: 2100 hours. CHIEF COMPLAINT: Heart pounding. HISTORY OF PRESENT ILLNESS: Ms. Campbell is a pleasant 89-year-old woman, who presented to the emergency department with complaints of pounding of her heart since earlier today. The patient states she did not experience any chest pain at any time, but reports having this sensation that her heart was pounding hard enough to make her chest wall move. She states she and her son were sitting down talking when all of a sudden she noted right lower sternal border area moving with every beat. Her son saw it as well and became alarmed. She states this was intermittent and therefore prompted her to come in to be evaluated. She reports undergoing an aortic valve replacement in June at [facility] in [place] by Dr. Martinez. She states she was referred there by her manager rn, Dr. Reed. The patient reports having some mild shortness of breath when her heart was beating hard, but other than that has not experienced any difficulty breathing. She has been able to ambulate to the bathroom without any shortness of breath or dizziness. Denies any associated diaphoresis. No nausea or vomiting. She has otherwise been well and herself in the recent days. ED COURSE: In the emergency department, the patient underwent an EKG which showed atrial fibrillation with RVR. Heart rate was 84. No ST changes or T-wave abnormalities. She underwent laboratory studies which showed a normal full blood count. BUN 23 and creatinine 1.20, which is elevated from her baseline. She had a GFR of 42 compared to 69 in June. Her alkaline phosphatase was elevated at 142. Otherwise, CMP was unremarkable. She had a chest x-ray done which demonstrated cardiomegaly with mild vascular engorgement. Dual lead pacemaker device present with leads inadequately positioned per x-ray imaging. The atrial lead appeared to be positioned in the superior vena cava. The right ventricular lead overlying the midline. Cardiology consultation was requested in the emergency department. The case was discussed with Dr. Hauser and she has been placed n.p.o. from midnight with plans to have this evaluated in the morning. In the emergency department, she received 500 mL of normal saline and 162 mg of aspirin. ALLERGIES: NO KNOWN DRUG ALLERGIES. CURRENT MEDICATIONS: 1. Eliquis. 2. Amlodipine. 3. Pravastatin. 4. Lasix. PAST MEDICAL HISTORY: 1. Atrial fibrillation. 2. Hypertension. 3. History of CVA. 4. Dyslipidemia. 5. Mild CAD. 6. Renal insufficiency. PAST SURGICAL HISTORY: 1. Aortic valve replacement. 2. Neck surgery. 3. Carotid endarterectomy. 4. Hysterectomy. 5. Pacemaker implanted June 2019. SOCIAL HISTORY: The patient lives with her son. She mobilizes independently without the use of assistive devices. Denies any tobacco use, alcohol consumption, or illicit drug use. PHYSICAL EXAMINATION: GENERAL: The patient appears well developed, well nourished, is in no acute distress. She is resting comfortably in bed. VITAL SIGNS: Temperature 97.7, pulse 77, respirations 16, O2 saturation 94% on room air, and blood pressure 152/64. HEENT: Normocephalic and atraumatic. Pupils are equal, round, and reactive to light. Sclerae without icterus. Oropharynx is clear. NECK: Supple. LUNGS: Clear to auscultation bilaterally without any wheezes, rales, or rhonchi. CARDIAC: Regular rate and rhythm. No abnormal chest wall movement. No tenderness on palpation. ABDOMEN: Soft, nontender, nondistended. Normoactive bowel sounds present. No guarding or rigidity. No renal angle tenderness. EXTREMITIES: Peripheral pulses equal bilaterally. No lower extremity swelling or edema. NEUROLOGIC: Alert and oriented x3. SKIN: Warm and dry. INVESTIGATIONS: As mentioned above in the HPI. IMPRESSION AND PLAN: Ms. Campbell is a pleasant 89-year-old woman, who has presented due to pounding sensation of visible chest wall movement that has been intermittent since earlier today with mild associated shortness of breath that has resolved whenever the pounding settles. No other associated symptoms. She is being admitted for management of the followin. Inadequate pacemaker lead position. The patient had a chest x-ray that demonstrated improper position of the atrial lead in the superior vena cava. She also had interrogation of the pacemaker, which showed the atrial lead position check failed on July 29, 2019. R-wave amplitude decreased. It demonstrated possible atrial lead issue, which was confirmed on the chest x-ray. Unable to therefore capture atrial or ventricular channel. She has had an episode of atrial tachycardia/fibrillation episodes most recently today. Per the report, there were 2113 episodes. Cardiology has been consulted and per the ED note, the case has been discussed with Dr. Hauser. The patient will remain on continuous cardiac monitoring. She is asymptomatic at present. The patient will remain n.p.o. after midnight. 2. Acute on chronic kidney injury. The patient with elevated creatinine of 1.20 compared to 0.79 a month ago, BUN elevated at 23. She received 500 mL of normal saline in the ED. We will give gentle IV hydration and hold any nephrotoxic medications. We will continue to monitor renal function. 3. Essential hypertension. Monitor blood pressure and resume home medications once verified. 4. Hyperlipidemia. Resume pravastatin. 5. Gastrointestinal prophylaxis with famotidine. 6. Deep venous thrombosis prophylaxis. The patient is ambulatory. We will hold any pharmacologic prophylaxis given cardiac procedure to be done tomorrow to address inadequately positioned leads. 7. Code status, full. Surrogate decision maker is her son. Case discussed with attending, who agrees with plan of care as described above. Job ID: [id number]
[2019-08-14 01:46] LABS: Troponin I Less than 0.010 ng/mL (< 0.028)
[2019-08-14 05:04] LABS: #Basophils 0.1 thou/uL (0.0-0.2); #Eosinphils 0.4 thou/uL (0.0-0.7); #Lymphocytes 2.5 thou/uL (1.20-3.40); #Monocytes 0.6 thou/uL (0.11-0.59); #Neutrophils 3.6 thou/uL (1.40-6.50); %Eosinophils 5.4 % (0.0-10.0); %Lymphocytes 34.8 % (21.0-51.0); %Monocytes 8.6 % (0.0-10.0); %Neutrophils 50.2 % (42.0-75.0); Hemoglobin 12.2 g/dL (12.0-16.0); Mean Corpuscular HGB CONC 33.8 g/dL (32.0-36.0); Mean Corpuscular Hemoglobin 29.5 pg (27.0-31.0); Mean Corpuscular Volume 87.2 fL (78.0-98.0); Mean Platelet Volume 8.6 fL (7.4-10.4); Platelet Count 237 thou/uL (130-400); RBC Distribution Width 14.5 % (11.5-14.5); Red Blood Cell (RBC) Count 4.15 mill/uL (4.20-5.40); White Blood Cell (WBC) Count 7.2 thou/uL (4.8-10.8)
[2019-08-14 05:28] LABS: Anion Gap 13 mmol/L (10-20); BUN (Urea Nitrogen) 23 mg/dL (9.8-20.1); Calc. Creatinine Clearance 53 mL/min (70-130); Calcium 8.7 mg/dL (7.8-10.44); Carbon Dioxide 22 mmol/L (23-31); Chloride 107 mmol/L (98-107); Estimated GFR-MDRD 59; Glucose 162 mg/dL (83-110); Potassium 3.2 mmol/L (3.5-5.1); Sodium 139 mmol/L (136-145)
[2019-08-14] MEDS ORDERED: Prevnar 13-Val Conj/PF 0.5 ML SYRINGE IM ONE (09:00)
--- NOTE | 2019-08-14 09:09 | CON ---
DATE OF CONSULTATION: HISTORY OF PRESENT ILLNESS: The patient is an 89-year-old woman with history of TAVR and pacemaker placement, who presented with pounding in her chest. The patient had recently undergone a cardiac catheterization and found to have mild coronary artery disease and severe aortic stenosis. She underwent a TAVR procedure about 2 months ago. The patient subsequently required placement of an electronic pacemaker. The patient was in her usual state of health when she suddenly felt her heart pounding. She denied having chest discomfort. The patient denies having any dyspnea. PAST MEDICAL HISTORY: 1. History of aortic stenosis. 2. History of CVA. 3. Mild CAD. 4. Hypertension. 5. Dyslipidemia. PAST SURGICAL HISTORY: Carotid endarterectomy and hysterectomy. MEDICATIONS: 1. Apixaban 5 b.i.d. 2. Protonix 40 daily. 3. Norvasc 10 daily. SOCIAL HISTORY: Nonsmoker. ALLERGIES: NO KNOWN DRUG ALLERGIES. REVIEW OF SYSTEMS: Ten-point system otherwise unremarkable. PHYSICAL EXAMINATION: GENERAL: Obese woman, in no acute distress. VITAL SIGNS: Blood pressure 141/64. NECK: No jugular venous distention. LUNGS: Clear to auscultation. HEART: Regular rate and rhythm. Normal S1 and S2. ABDOMEN: Nondistended. EXTREMITIES: Showed no edema. VASCULAR: Radial pulses are 2+. LABORATORY RESULTS: Sodium 129, potassium 3.2, chloride 107, bicarbonate 22, BUN 23, and creatinine 0.9. Troponin less than 0.01. White blood cell count 7.2, hemoglobin 12.2, hematocrit 36.2, and platelets are 237. IMAGING DATA: EKG revealed electronic ventricular pacemaker with intermittent capture. IMPRESSION: 1. Pacemaker lead malposition. 2. History of transcatheter aortic valve replacement. 3. Hypertension. 4. Renal insufficiency. 5. History of paroxysmal atrial fibrillation. 6. Mild coronary artery disease. PLAN: This patient has malfunction of her pacemaker. The leads have migrated. We will obtain EP consultation. We will follow this patient with you through her hospitalization. Job ID: [id number] [facility]
[2019-08-14] MEDS: Amlodipine 10 MG TAB PO SCH (09:30)
[2019-08-14] MEDS: Clopidogrel Bisulfate 75 MG TAB PO SCH (09:30)
[2019-08-14] MEDS ORDERED: Iopamidol 370 76% 50 ML VIAL FS ONE (13:48)
[2019-08-14 15:12] VITALS: BMI 30.2
[2019-08-14] MEDS ORDERED: Fentanyl 100 MCG/2 ML VIAL ONE (17:24)
[2019-08-14] MEDS ORDERED: Midazolam HCl 2 mg/2 ml Vial ONE (17:25)
[2019-08-14] MEDS ORDERED: Lidocaine 1% (PF) 30 ML VIAL ONE (17:46)
[2019-08-14] MEDS ORDERED: HYDROcodone/Acetaminophen 5/325 mg Tablet PO PRN (18:49)
[2019-08-14] MEDS ORDERED: Acetaminophen/Codeine 30-300mg Tablet PO PRN (18:49)
--- NOTE | 2019-08-14 18:54 | PDOC.HOSPP ---
- Subjective Encounter Date: 08/14/19 Encounter Time: 08:55 Subjective: pt up in bed no complains. - Objective Vital Signs & Weight: Vital Signs (12 hours) Temp Pulse Resp BP BP Pulse Ox 08/14/19 15:20 98.1 F 75 16 126/70 94 L 08/14/19 12:06 97.6 F 63 18 129/87 95 08/14/19 09:30 72 141/64 H 08/14/19 07:56 98.3 F 72 18 141/64 H 93 L Weight Admit Weight 180 lb Weight 176 lb I&O: 08/13/19 08/14/19 08/15/19 06:59 06:59 06:59 Intake Total 240 40 Output Total 700 Balance -460 40 Result Diagrams: 08/14/19 04:43 08/14/19 04:44 Hospitalist ROS - Review of Systems Cardiovascular: denies: chest pain, palpitations, orthopnea, paroxysmal noc. dyspnea, edema, light headedness, other Gastrointestinal: denies: nausea, vomiting, abdominal pain, diarrhea, constipation, melena, hematochezia, other Genitourinary: denies: dysuria, frequency, incontinence, hematuria, retention, other - Medication Medications: Active Medications Generic Name Dose Route Start Last Admin Trade Name Freq PRN Reason Stop Dose Admin Amlodipine Besylate 10 mg 08/14/19 09:00 08/14/19 09:30 Norvasc PO 10 mg DAILY BENITA Administration Clopidogrel Bisulfate 75 mg 08/14/19 09:00 08/14/19 09:30 Plavix PO 75 mg DAILY BENITA Administration - Exam Heart: negative: RRR, no murmur, no gallops, no rubs, normal peripheral pulses, irregular, diminshed peripheral pulses, murmur present, II/IV, III/IV Respiratory: negative: CTAB, no wheezes, no rales, no ronchi, normal chest expansion, no tachypnea, normal percussion, rales, rhonchi, tachypneic, wheezes Gastrointestinal: negative: soft, non-tender, non-distended, normal bowel sounds , no palpable masses, no hepatomegaly, no splenomegaly, no bruit, no guarding, no rigidity, tender to palpation, distended, diminished bowl sounds, voluntary guarding Extremities: negative: no cyanosis, no clubbing, no edema, 1+ LE edema, 2+ LE edema, clubbing Hosp A/P (1) Palpitation Code(s): R00.2 - PALPITATIONS Status: Acute (2) Dyslipidemia Code(s): E78.5 - HYPERLIPIDEMIA, UNSPECIFIED Status: Chronic (3) HTN (hypertension) Code(s): I10 - ESSENTIAL (PRIMARY) HYPERTENSION Status: Chronic (4) Obesity (BMI 30.0-34.9) Code(s): E66.9 - OBESITY, UNSPECIFIED Status: Chronic (5) Afib Code(s): I48.91 - UNSPECIFIED ATRIAL FIBRILLATION Status: Acute - Plan pt is npo, awaiting cardiology consultation. inadequate lead placement. will continue plavix and will start eliquis when ok with cardio.
--- NOTE | 2019-08-14 19:34 | RAD ---
CHEST ONE VIEW: 08/14/19 INDICATION: History of cardiac device placement. COMPARISON: Prior exam dated 08/13/19. FINDINGS: There is mild to moderate cardiomegaly which is stable appearing. Mild pulmonary vascular congestion is present. Mild interstitial edema is present. There has been revision of the dual lead cardiac lead . The lead is projecting in the expected position. No pneumothorax is evident. No pleural effusion or pneumothorax is evident. IMPRESSION: 1. Mild cardiomegaly with pulmonary vascular congestion and mild interstitial edema. 2. Revision of the dual lead pacemaker leads. 3. Stable aortic valve replacement. POS: BH
--- NOTE | 2019-08-14 20:20 | CON ---
DATE OF CONSULTATION: 08/14/2019 I am seeing Mrs. Campbell at our [facility] Telemetry Floor as an electrophysiology consult and her problems are: 1. Likely pacemaker lead malfunction. a. Recent dual-chamber pacemaker in June 2019 following a TAVR surgery. b. The abnormal pacing noted and chest x-ray is suggestive of retracted atrial and ventricular leads. 2. History of aortic stenosis status post TAVR procedure two months ago. 3. History of CVA. 4. Mild coronary artery disease. 5. Atrial fibrillation persisting. 6. Renal insufficiency. 7. Mild coronary artery disease. ALLERGIES: NONE NOTED. MEDICATIONS: At home included; 1. Atorvastatin. 2. Amlodipine. 3. Apixaban 5 mg twice a day. 4. Metoprolol succinate. 5. Clopidogrel. SUBJECTIVE: Mrs. Campbell was admitted with heart pounding sensation and jolting on her side, also some dyspnea was noted. She came to the ER. She was noted to have abnormal EKG with intermittent pacing. She has not passed out with these. No stroke-like symptoms. No other neurological deficits. No PND or orthopnea. Rest of 12-point system otherwise unremarkable. PAST MEDICAL HISTORY: As above. PAST SURGICAL HISTORY: Aortic valve replacement two months ago, transcutaneous neck surgery, carotid endarterectomy, hysterectomy, and pacemaker implantation June 2019. SOCIAL HISTORY: The patient lives with her son. She mobilizes well without assistive devices. Denied tobacco, EtOH, or drug abuse. FAMILY HISTORY: Not contributory. OBJECTIVE DATA: VITAL SIGNS: Blood pressure is 126/70, heart rate 75, respiratory rate 16, and temperature 98.1 degrees Fahrenheit. GENERAL: Alert and oriented woman, in no apparent distress. NECK: Supple. Jugular veins not distended. CHEST: Coarse with crackles. HEART: Heart sounds are irregularly irregular. S1 and S2 are variable. No murmur or gallop. ABDOMEN: Benign. Bowel sounds are positive. EXTREMITIES: Lower extremities without edema, clubbing, or cyanosis. Left epicardial pacemaker insertion site is well healed. DATABASE: EKG on admission reveals atrial fibrillation with intermittent and appropriate sensing and noncapture. Intermittent ventricular capture is also seen. Telemetry also reveals continued atrial fibrillation and no appropriate sensing. LABORATORY DATA: White cell count 7.2, hemoglobin 12.2, platelet count is 237. Sodium 139, potassium 3.2, BUN is 23, creatinine is 0.9. Troponin I 0.01 x3. The chest x-ray was reviewed revealing retracted pacemaker with the SVC both atrial and ventricular lead. ASSESSMENT AND PLAN: Mrs. Campbell is a pleasant 89-year-old woman with history of aortic valve stenosis, status post TAVR procedure, who required postoperatively a dual-chamber pacemaker implant. The pacemaker is exhibiting signs of nerve function. An interrogation today does reveal poor atrioventricular sensing and capture. Chest x-ray explains the reason for that, which seems to be at both atrial and ventricular leads rechecked due to the SVC/right atrium respectively. 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 We discussed the findings with the patient, explained that likely a pacemaker lead revision will be required. Hence, the leads that were 1 month old and steroid eluding features already passed on the lead. She likely will require a new lead implantation and extraction of the old leads. Risks and benefits of the procedure were discussed including chance of bleeding, infection, pneumothorax, tamponade, especially in view of her recent anticoagulant use. We will schedule her for near date for having this device change performed. Thank you again for letting me to participate in the care of this patient. Job ID: [id number]
[2019-08-14] MEDS ORDERED: Atorvastatin Calcium 10 MG TAB PO SCH (21:00)
[2019-08-14] MEDS: CEFAZOLIN 1 GM in Sodium Chloride 0.9% 100 ML IVPB SCH (21:09)
[2019-08-15] MEDS: CEFAZOLIN 1 GM in Sodium Chloride 0.9% 100 ML IVPB SCH (05:35)
[2019-08-15] MEDS ORDERED: Cephalexin 250 MG CAP PO SCH ×2 (08:00→09:00)
[2019-08-15 08:13] VITALS: BP 115/62; TEMP 97.5
[2019-08-15] MEDS: Clopidogrel Bisulfate 75 MG TAB PO SCH (08:14)
[2019-08-15] MEDS: Amlodipine 10 MG TAB PO SCH (08:15)
--- NOTE | 2019-08-15 13:51 | DIS ---
DATE OF ADMISSION: 08/13/2019 DATE OF DISCHARGE: 08/15/2019 PRIMARY CARE PROVIDER: Dr. Steven Escalante. DISCHARGE DIAGNOSES: 1. Pacemaker lead malposition. 2. Acute on chronic stage 3 renal failure. 3. Hypokalemia. CONDITION OF PATIENT ON THE DAY OF DISCHARGE: Stable. I assessed Ms. Campbell on the day of discharge. She denies any chest pain or shortness of breath. Vital signs are stable. S1 and S2 are heard, irregular. Lungs are clear to auscultation bilaterally. DISCHARGE MEDICATIONS: She has been advised to resume apixaban 5 mg 2 times a day with morning dose on August 16, 2019. She has been started on cephalexin 500 mg 4 times a day for 1 week. Otherwise, no change was made to her pre-admission home medications, which include; 1. Amlodipine 10 mg daily. 2. Plavix 75 mg daily. 3. Hydrochlorothiazide 37.5 mg daily. 4. Toprol-XL 12.5 mg daily. 5. Pravastatin 40 mg in the evening. CONSULTATIONS DURING THIS HOSPITALIZATION: Cardiology, Dr. Reed and Electrophysiology, Dr. Houston. HOSPITAL COURSE: Ms. Campbell is a pleasant 89-year-old lady, who was admitted to [facility] on August 13, 2019, for malfunctioning pacemaker secondary to lead dislocation. Please refer to Ms. Martinez's history and physical note dated August 13, 2019 for further details. She was monitored on telemetry. She also had acute on chronic renal failure at the time of admission, which resolved. She was seen by Cardiology and Electrophysiology Services. On August 13, she underwent lead revision. She has been cleared for discharge by consulting services. She is being discharged home in a stable condition. Post acute care followup: With primary care provider in 3 days and with facilities painter, Dr. Houston in 2 weeks. DIET: Heart healthy diet. ACTIVITY: No restrictions. DISCHARGE DISPOSITION: Home. Many thanks for allowing me to participate in your patient's care. Please feel free to contact me with any questions or concerns. Job ID: [id number]
--- NOTE | 2019-08-15 15:56 | EKG ---
Test Reason : Blood Pressure : / mmHG Vent. Rate : 074 BPM Atrial Rate : 357 BPM P-R Int : 000 ms QRS Dur : 086 ms QT Int : 412 ms P-R-T Axes : 000 042 -26 degrees QTc Int : 457 ms Atrial fibrillation Nonspecific ST and T wave abnormality , probably digitalis effect Abnormal ECG When compared with ECG of 13-AUG-2019 18:10, (Unconfirmed) Atrial fibrillation has replaced Electronic ventricular pacemaker Confirmed by LAURA CHISHOLM, SKeon ([id number]) on 08/15/2019 3:56:13 PM Referred By: [facility] Confirmed By:DR. Desi SANCHEZ MD
--- NOTE | 2019-08-15 16:01 | PDOC.EP ---
- Subjective Date: 08/15/19 Time: 10:00 Interval History: follow up after lead revision on 08/13. Pending DC. Feels well. Voices no complaints. - Review of Systems Constitutional: denies: chills, fever, malaise, sweats, weakness, other Respiratory: denies: cough, dry, hemoptysis, pleuritic pain, shortness of breath , SOB with excertion, sputum, wheezing, other Cardiology: denies: chest pain, edema, heart racing, light headedness, paroxysmal noc. dyspnea, orthopnea, palpitations, passing out, pleuritic pain, pressure, swelling, other Gastrointestinal: denies: abdominal pain, constipation, diarrhea, hematochezia, melena, nausea, vomitting, other - Objective Allergies/Adverse Reactions: Allergies Allergy/AdvReac Type Severity Reaction Status Date / Time No Known Allergies Allergy Verified 08/13/19 22:27 Vital Signs & Weight: Vital Signs Temp Pulse Resp BP BP Pulse Ox 08/15/19 08:15 75 115/62 08/15/19 07:32 97.5 F L 75 16 115/62 94 L Admit Weight 180 lb Weight 176 lb I/O: I/O 08/14/19 08/15/19 08/16/19 06:59 06:59 06:59 Intake Total 240 600 Output Total 700 800 Balance -460 -200 - Quality Measures Condition: Atrial Fibrillation/Flutter (hx or current) CV meds: Eliquis: Yes (resume Sunday AM) - Physical Exam General: alert & oriented x3, appears well, no apparent distress, speech clear, affect appropriate HEENT: mucus membranes moist, normocephaly Neck: supple neck, midline trachea, no JVD/HJR, no masses, no bruit, no lymphadenopathy, no thromegaly Cardiology: irregularly irregular Lungs: clear to auscultation, normal breath sounds, no wheeze, rales, rhonchi Neurology: cranial nerve 2-12 intact, sensory function intact, no lateralizing findings Extremities: dry, strong pulses, warm Skin: device site stable w/o swelling, right sided device. negative: bruising, drainage, erosion - Labs Result Diagrams: 08/14/19 04:43 08/14/19 04:44 - EKG Interpretation EKG Method: Telemetry EKG shows: Atrial fibrillation - Device Device: dual, pacemaker Device Result: [employer] - Assessment/Plan Assessment/Plan: 1. Dual chamber pacemaker b. The abnormal pacing noted and chest x-ray is suggestive of retracted atrial and ventricular leads. 2. History of aortic stenosis status post TAVR procedure two months ago. 3. History of CVA. 4. Mild coronary artery disease. 5. Atrial fibrillation persisting. 6. Renal insufficiency. 7. Mild coronary artery disease. CXR and device check stable this AM. Ok for DC by EP on Keflex 500mg PO QID x 7days. OK to resume eliquis in AM. 2 week wound check with TCA
--- NOTE | 2019-08-16 13:43 | EKG ---
Test Reason : Blood Pressure : / mmHG Vent. Rate : 084 BPM Atrial Rate : 105 BPM P-R Int : 000 ms QRS Dur : 076 ms QT Int : 356 ms P-R-T Axes : 000 014 -10 degrees QTc Int : 420 ms Atrial fibrillation with frequent ventricular-paced complexes Abnormal ECG Confirmed by SHARLENE SPAIN M.D. ([id number]), video news editor DONAVON FOX ([id number]) on 08/16/2019 1:42:47 PM Referred By: Confirmed By:SHARLENE SPAIN M.D.
[2019-08-17] MEDS ORDERED: Apixaban 5 MG TAB PO SCH (07:00)
== END 2019-08-15 12:45 | disposition home or self-care (01) ==
LOC: ERS 18:00 → 2SW 20:21
PROVIDERS: ADMIT Internal Medicine; ATTEND Internal Medicine
PROC: 0JH606Z Insertion of Pacemaker, Dual Chamber into Chest Subcutaneous Tissue and Fascia, Open Approach (ICD-10-PCS; principal; 2019-08-13)
PROC: 02H43JZ Insertion of Pacemaker Lead into Coronary Vein, Percutaneous Approach (ICD-10-PCS; 2019-08-13)
DX: T82.128A Displacement of other cardiac electronic device, initial encounter (principal); I12.9 Hypertensive chronic kidney disease with stage 1 through stage 4 chronic kidney disease, or unspecified chronic kidney disease; N18.3 Chronic kidney disease, stage 3 (moderate); N17.9 Acute kidney failure, unspecified; E87.6 Hypokalemia; I48.19 Other persistent atrial fibrillation; I25.10 Atherosclerotic heart disease of native coronary artery without angina pectoris; E66.9 Obesity, unspecified; Z68.30 Body mass index [BMI] 30.0-30.9, adult; Z79.01 Long term (current) use of anticoagulants; Z79.899 Other long term (current) drug therapy; Z86.73 Personal history of transient ischemic attack (TIA), and cerebral infarction without residual deficits; Z95.0 Presence of cardiac pacemaker; Z95.4 Presence of other heart-valve replacement
CPT/HCPCS: 33217; 36005; 36415; 71045; 75820; 80048; 80053; 84484; 85025; 93005; 93010; 94760; 96360; 96365; 96366; 99152; 99153; C1898; G0378; J0690; J2001; J2250; J3010; J3490; Q9967

== ENCOUNTER 2020-01-21 11:36 | Emergency (ER) | payer MEDICARE, OTHER ==
[2020-01-21 12:10] LABS: #Eosinphils 0.2 thou/uL (0.0-0.7); #Lymphocytes 1.9 thou/uL (1.20-3.40); #Monocytes 0.9 thou/uL (0.11-0.59); #Neutrophils 4.9 thou/uL (1.40-6.50); %Basophils 0.4 % (0.0-1.0); %Eosinophils 2.3 % (0.0-10.0); %Lymphocytes 24.2 % (21.0-51.0); %Neutrophils 62.1 % (42.0-75.0); Hemoglobin 15.4 g/dL (12.0-16.0); Mean Corpuscular HGB CONC 32.5 g/dL (32.0-36.0); Mean Corpuscular Hemoglobin 28.8 pg (27.0-31.0); Mean Corpuscular Volume 88.7 fL (78.0-98.0); Platelet Count 193 thou/uL (130-400); RBC Distribution Width 15.3 % (11.5-14.5); Red Blood Cell (RBC) Count 5.35 mill/uL (4.20-5.40)
--- NOTE | 2020-01-21 12:26 | RAD ---
RADIOGRAPH CHEST 1 VIEW: DATE: 01/21/2020 HISTORY: 89-year-old female status post revision of cardiac device. COMPARISON: 08/14/2019 FINDINGS: The thoracic aorta is tortuous and ectatic. There is no evidence of airspace density, pulmonary edema , or pneumothorax. The lateral costophrenic angles are not effaced. Dual lead left subclavian pacemaker again noted. The pulse generator is in a different orientation on the current study compare d to the previous. There has been no other interval change. Again noted is the stent at the aortic root. IMPRESSION: 1) No acute pulmonary findings. 2) ectasia of thoracic aorta. 3) left subclavian dual lead pacemaker with pulse generator in different orientation on the current s tudy compared to previous. 4) status post TAVR
[2020-01-21 12:30] LABS: INR-International Normal Ratio 1.1; Prothrombin Time 14.3 sec (12.0-14.7)
[2020-01-21 12:40] LABS: ALT (SGPT) 15 U/L (8-55); AST (SGOT) 30 U/L (5-34); Albumin 4.1 g/dL (3.4-4.8); Alkaline Phosphatase 114 U/L (40-110); Anion Gap 15 mmol/L (10-20); BUN (Urea Nitrogen) 29 mg/dL (9.8-20.1); Bilirubin, Total 0.8 mg/dL (0.2-1.2); Calc. Creatinine Clearance 0 mL/min (70-130); Calcium 8.8 mg/dL (7.8-10.44); Carbon Dioxide 24 mmol/L (23-31); Chloride 100 mmol/L (98-107); Estimated GFR-MDRD 45; Globulin 3.9 g/dL (2.4-3.5); Glucose 97 mg/dL (83-110); Lipase 44 U/L (8-78); Magnesium 2.3 mg/dL (1.6-2.6); Potassium 4.6 mmol/L (3.5-5.1); Sodium 134 mmol/L (136-145)
[2020-01-21] MEDS ORDERED: Iopamidol-370 76% 500 ML 1 ML ONE (14:13)
--- NOTE | 2020-01-22 09:30 | CT ---
CT ANGIOGRAM CHEST WITH 3D RENDERING: HISTORY: Chest pain, history of aortic valve replacement and prior pacemaker placement with left thoracic spin e pain radiating to chest wall. FINDINGS: There are numerous small bilateral calcified nodules as well as calcified granulomata in the perihila r regions in addition to numerous small less than 0.4 cm diameter noncalcified nodules bilaterally. A small amount of fluid within the pericardial sac. Status post TAVR. Three-vessel coronary artery calcific disease. No evidence for aortic aneurysm. No convincing CT evidence for acute pulmonary em bolism. Slightly nodular adrenal glands bilaterally. No significant acute pleural effusion. IMPRESSION: No convincing CT evidence for acute pulmonary embolism. Old granulomatous disease with calcified and noncalcified small nodules bilaterally. Consider follow up 1-year chest CT scan for further assessment. Status post TAVR. Small amount of fluid within the pericardium. No evidence for aortic aneurysm. POS: OFF
--- NOTE | 2020-01-24 13:07 | EKG ---
Test Reason : Blood Pressure : / mmHG Vent. Rate : 104 BPM Atrial Rate : 058 BPM P-R Int : 000 ms QRS Dur : 080 ms QT Int : 334 ms P-R-T Axes : 000 059 004 degrees QTc Int : 439 ms Atrial fibrillation with rapid ventricular response with premature ventricular or aberrantly conducte d complexes Nonspecific ST and T wave abnormality , probably digitalis effect Abnormal ECG Confirmed by MEI SHARMA ([id number]), technical writer and editor DONAVON FOX ([id number]) on 01/24/2020 1:07:02 PM Referred By: Confirmed By:MEI SHARMA
== END 2020-01-21 15:37 | disposition home or self-care (01) ==
LOC: ERS 11:36
DX: B02.9 Zoster without complications (principal); R91.1 Solitary pulmonary nodule; M54.6 Pain in thoracic spine; I10 Essential (primary) hypertension; I48.91 Unspecified atrial fibrillation; E78.00 Pure hypercholesterolemia, unspecified; Z79.01 Long term (current) use of anticoagulants; Z79.899 Other long term (current) drug therapy
CPT/HCPCS: 71045; 71275; 80053; 83690; 83735; 83880; 84484; 85025; 85610; 93005; 99406; Q9967